=== PATIENT | male | born 1960 | race Caucasian/White ===

== ENCOUNTER 2018-08-16 23:48 | Emergency (ER) | payer OTHER ==
[~2018-08-16] VITALS: Ht 180.3 cm; Wt 122.7 kg
[2018-08-17 00:14] VITALS: BP 139/92
[2018-08-17] MEDS ORDERED: NS 500 ML IV ONE (00:15)
[2018-08-17] MEDS ORDERED: FLECAINIDE 50MG TABLET PO ONE (00:15)
[2018-08-17] MEDS ORDERED: ASPIRIN 325 MG TAB PO ONE (00:15)
[2018-08-17] MEDS ORDERED: METOPROLOL TART 25 MG TABLET PO ONE (00:15)
[2018-08-17 00:38] LABS: BASO % 0.5 % (0.0-1.0); BLOOD UREA NITROGEN 17 MG/DL (7-18); CALCIUM LEVEL 8.7 MG/DL (8.8-10.2); CARBON DIOXIDE LEVEL 26 MEQ/L (21-32); CHLORIDE LEVEL 107 MEQ/L (98-107); CPK CREATINE PHOSPHOKINASE 158 U/L (39-308); CREATININE FOR GFR 1.02 MG/DL (0.70-1.30); EOS # 0.1 10^3/uL (0.0-0.50); EOS % 1.7 % (0.0-3.0); GLOMERULAR FILTRATION RATE > 60.0 (>49); GLUCOSE, FASTING 174 MG/DL (70-100); HEMATOCRIT 46.8 % (42.0-52.0); HEMOGLOBIN 15.9 g/dl (13.5-17.5); LYMPH # 3.1 10^3/uL (1.5-4.5); LYMPH % 36.6 % (24.0-44.0); MB/CK RELATIVE INDEX 1.58 (< OR =4); MEAN CORPUSCULAR HEMOGLOBIN 31.4 pg (27.0-33.0); MEAN CORPUSCULAR VOLUME 92.5 fl (80.0-96.0); MONO # 0.8 10^3/uL (0.0-0.8); MONO % 9.1 % (0.0-5.0); NEUTROPHILS # 4.3 10^3/uL (1.8-7.7); NEUTROPHILS % 51.9 % (36.0-66.0); PLATELET COUNT, AUTOMATED 189 10^3/uL (150-450); POTASSIUM SERUM 3.7 MEQ/L (3.5-5.1); RED BLOOD COUNT 5.06 10^6/uL (4.30-6.10); SODIUM LEVEL 140 MEQ/L (136-145); TROPONIN I < 0.02 NG/ML (< 0.10); WHITE BLOOD COUNT 8.3 10^3/uL (4.0-10.0)
[2018-08-17 01:18] VITALS: BP 140/86
[2018-08-17 01:18] LABS: T UPTAKE 36 % (33-40); THYROXINE (T4) 8.2 UG/DL (4.5-12.0)
[2018-08-17] MEDS ORDERED: FLEC50HA PO (01:55)
--- NOTE | 2018-08-17 07:46 | ECGEPIP ---
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
--- NOTE | 2018-08-17 07:47 | ECGEPIP ---
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
== END 2018-08-17 02:34 | disposition home or self-care (01) ==
LOC: M ED 23:48
DX: I48.91 Unspecified atrial fibrillation (principal); Z91.19 Patient's noncompliance with other medical treatment and regimen

== ENCOUNTER 2018-08-19 16:52 | Emergency (ER) | payer OTHER ==
[~2018-08-19] VITALS: Ht 180.3 cm; Wt 127.8 kg
[~2018-08-19 16:52] MED LIST: FLEC50HA PO
[2018-08-19] MEDS ORDERED: NITROGLYCERIN 2% OINT 1 GM *U/D* PKT TOP ONE (17:45)
[2018-08-19] MEDS ORDERED: ASPIRIN 81 MG CHEW TABLET PO ONE (17:45)
[2018-08-19] MEDS ORDERED: GI COCKTAIL 50ML BTL(HYOSCYAMINE/MAALOX/LIDOCAINE VISCOUS)(1:3:1) PO ONE (17:45)
[2018-08-19 17:56] VITALS: BP 121/57
[2018-08-19 18:02] LABS: BASO % 0.5 % (0.0-1.0); EOS # 0.2 10^3/uL (0.0-0.50); EOS % 2.4 % (0.0-3.0); HEMATOCRIT 44.6 % (42.0-52.0); HEMOGLOBIN 15.1 g/dl (13.5-17.5); LYMPH # 2.6 10^3/uL (1.5-4.5); LYMPH % 31.4 % (24.0-44.0); MEAN CORPUSCULAR HEMOGLOBIN 31.7 pg (27.0-33.0); MEAN CORPUSCULAR HGB CONC 33.9 g/dl (32.0-36.5); MEAN CORPUSCULAR VOLUME 93.7 fl (80.0-96.0); MONO # 0.7 10^3/uL (0.0-0.8); MONO % 8.1 % (0.0-5.0); NEUTROPHILS # 4.7 10^3/uL (1.8-7.7); NEUTROPHILS % 57.4 % (36.0-66.0); PLATELET COUNT, AUTOMATED 192 10^3/uL (150-450); RED BLOOD COUNT 4.76 10^6/uL (4.30-6.10); WHITE BLOOD COUNT 8.3 10^3/uL (4.0-10.0)
[2018-08-19 18:07] LABS: INR 1.01; PROTHROMBIN TIME 13.4 SECONDS (12.1-14.4)
[2018-08-19 18:08] LABS: PARTIAL THROMBOPLASTIN TIME 28.5 SECONDS (25.4-37.6)
[2018-08-19 18:15] LABS: ALBUMIN 3.3 GM/DL (3.2-5.2); ALT/SGPT 36 U/L (12-78); BILIRUBIN,DIRECT 0.1 MG/DL (0.0-0.2); BILIRUBIN,TOTAL 0.4 MG/DL (0.2-1.0); BLOOD UREA NITROGEN 23 MG/DL (7-18); CALCIUM LEVEL 8.3 MG/DL (8.8-10.2); CARBON DIOXIDE LEVEL 27 MEQ/L (21-32); CHLORIDE LEVEL 108 MEQ/L (98-107); CPK CREATINE PHOSPHOKINASE 178 U/L (39-308); CREATININE FOR GFR 0.91 MG/DL (0.70-1.30); GLOMERULAR FILTRATION RATE > 60.0 (>49); GLUCOSE, FASTING 104 MG/DL (70-100); MB/CK RELATIVE INDEX 1.24 (< OR =4); NT-PRO BNP 87 PG/ML (<125); POTASSIUM SERUM 3.7 MEQ/L (3.5-5.1); SODIUM LEVEL 141 MEQ/L (136-145); TOTAL PROTEIN 6.8 GM/DL (6.4-8.2); TROPONIN I < 0.02 NG/ML (< 0.10)
[2018-08-19] MEDS ORDERED: ISOVUE-370 76% 100ML VIAL (Q9967) As Ordered ONE (18:33)
--- NOTE | 2018-08-19 19:03 | REP ---
CHEST, PORTABLE: AP portable view of the chest is performed. There is cardiomegaly. I see no acute infiltrate. Mediastinal silhouette is unremarkable. IMPRESSION: Mild cardiomegaly. No acute infiltrate. Electronically Signed by Ar Marie MD 08/20/2018 04:51 P
[2018-08-19 19:08] LABS: ERYTHROCYTE SEDIMENTATION RATE 7 mm/hr (0-20)
--- NOTE | 2018-08-19 20:10 | REPVR ---
EXAM: CT Angiography Chest With Contrast EXAM DATE/TIME: 08/19/2018 7:24 PM CLINICAL HISTORY: 58 years old, male; Chest pain; Additional info: R/O pe TECHNIQUE: Imaging protocol: Axial computed tomographic angiography images of the chest with intravenous contrast using CT angiography protocol. Coronal and sagittal reformatted images were created and reviewed. 3D rendering: MIP reconstructed images were created and reviewed. Radiation optimization: All CT scans at this facility use at least one of these dose optimization techniques: automated exposure control; mA and/or kV adjustment per patient size (includes targeted exams where dose is matched to clinical indication); or iterative reconstruction. Contrast material: ISO 370; Contrast volume: 75 ml; Contrast route: IV; COMPARISON: CR PORTABLE CHEST X-RAY 08/19/2018 6:01 PM FINDINGS: Pulmonary arteries: The main pulmonary artery measures 28 mm. No pulmonary embolism is identified. Aorta: The ascending thoracic aorta measures 36 mm. Lungs: Minimal dependent atelectasis in the lower lobes. Pleural space: Normal. No pneumothorax. No pleural effusion. Heart: Coronary artery calcifications are present. Gallbladder and bile ducts: The gallbladder is contracted with no stones. Lymph nodes: Unremarkable. No enlarged lymph nodes. Bones/joints: Unremarkable. No acute fracture. Soft tissues: Unremarkable. IMPRESSION: Negative CTA chest. No pulmonary embolism is identified. Electronically signed by: Alfredo Stewart On 08/19/2018 20:10:26 PM
[2018-08-19 21:46] LABS: CPK CREATINE PHOSPHOKINASE 186 U/L (39-308); MB/CK RELATIVE INDEX 1.08 (< OR =4); TROPONIN I < 0.02 NG/ML (< 0.10)
[2018-08-19] MEDS ORDERED: ASPI81TA85 PO (21:57)
[2018-08-19] MEDS ORDERED: FLECAINIDE 50MG TABLET PO ONE (22:45)
[2018-08-19 22:52] VITALS: BP 122/77
--- NOTE | 2018-08-20 05:53 | ECGEPIP ---
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
--- NOTE | 2018-08-20 05:56 | ECGEPIP ---
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
== END 2018-08-19 23:03 | disposition home or self-care (01) ==
LOC: M ED 16:52
DX: R07.89 Other chest pain (principal); I49.3 Ventricular premature depolarization; R06.02 Shortness of breath; I48.91 Unspecified atrial fibrillation; Z86.79 Personal history of other diseases of the circulatory system; Z87.891 Personal history of nicotine dependence; Z82.49 Family history of ischemic heart disease and other diseases of the circulatory system
CPT/HCPCS: 36415; 71045; 71275; 80048; 80076; 82550; 82553; 83880; 84484; 85025; 85610; 85652; 85730; 86140; 93005; 93041; 94760; 99285; Q9967

== ENCOUNTER 2018-09-14 23:47 | Emergency (ER) | payer OTHER ==
[~2018-09-14] VITALS: Ht 177.8 cm; Wt 127.3 kg
[~2018-09-14 23:47] MED LIST changes: +ASPI81TA85 PO
[2018-09-15] MEDS ORDERED: METOPROLOL 5 MG/5 ML VIAL As Ordered ONE (00:11)
[2018-09-15 00:24] VITALS: BP 144/66
[2018-09-15 00:25] LABS: BASO % 0.5 % (0.0-1.0); EOS # 0.2 10^3/uL (0.0-0.50); EOS % 2.8 % (0.0-3.0); HEMATOCRIT 46.5 % (42.0-52.0); HEMOGLOBIN 15.9 g/dl (13.5-17.5); LYMPH # 2.6 10^3/uL (1.5-4.5); LYMPH % 30.7 % (24.0-44.0); MEAN CORPUSCULAR HEMOGLOBIN 32.1 pg (27.0-33.0); MEAN CORPUSCULAR HGB CONC 34.2 g/dl (32.0-36.5); MEAN CORPUSCULAR VOLUME 93.8 fl (80.0-96.0); MONO % 11.9 % (0.0-5.0); NEUTROPHILS # 4.6 10^3/uL (1.8-7.7); NEUTROPHILS % 53.4 % (36.0-66.0); PLATELET COUNT, AUTOMATED 185 10^3/uL (150-450); RED BLOOD COUNT 4.96 10^6/uL (4.30-6.10); WHITE BLOOD COUNT 8.6 10^3/uL (4.0-10.0)
[2018-09-15] MEDS ORDERED: METOPROLOL TART 25 MG TABLET PO ONE (00:30)
[2018-09-15 00:56] LABS: BLOOD UREA NITROGEN 24 MG/DL (7-18); CALCIUM LEVEL 8.7 MG/DL (8.8-10.2); CARBON DIOXIDE LEVEL 25 MEQ/L (21-32); CHLORIDE LEVEL 106 MEQ/L (98-107); CPK CREATINE PHOSPHOKINASE 220 U/L (39-308); CREATININE FOR GFR 0.82 MG/DL (0.70-1.30); GLOMERULAR FILTRATION RATE > 60.0 (>49); GLUCOSE, FASTING 129 MG/DL (70-100); MAGNESIUM LEVEL 2.1 MG/DL (1.8-2.4); MB/CK RELATIVE INDEX 1.05 (< OR =4); POTASSIUM SERUM 4.6 MEQ/L (3.5-5.1); SODIUM LEVEL 138 MEQ/L (136-145); TROPONIN I < 0.02 NG/ML (< 0.10)
[2018-09-15 03:45] VITALS: BP 107/65
[2018-09-15] MEDS ORDERED: METO1TAB87 PO (03:56)
--- NOTE | 2018-09-15 08:57 | REP ---
Clinical: Chest pain . Comparison: 08/02/2018 . Findings: The mediastinum and cardiac silhouette are stable and within normal limits for portable technique. The lung moarles are clear without acute consolidation, effusion, or pneumothorax. Skeletal structures are intact. Impression: No acute cardiopulmonary process appreciated. Electronically Signed by Joseph Rodriguez MD 09/15/2018 08:49 A
--- NOTE | 2018-09-15 20:56 | ECGEPIP ---
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
--- NOTE | 2018-09-15 20:57 | ECGEPIP ---
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
== END 2018-09-15 04:15 | disposition home or self-care (01) ==
LOC: M ED 23:47
DX: I48.91 Unspecified atrial fibrillation (principal); I48.92 Unspecified atrial flutter

== ENCOUNTER 2018-10-17 15:30 | Emergency (ER) | payer OTHER ==
[~2018-10-17] VITALS: Ht 177.8 cm; Wt 125.9 kg
[~2018-10-17 15:30] MED LIST changes: +METO1TAB87 PO
[2018-10-17] MEDS ORDERED: METOPROLOL 5 MG/5 ML VIAL IV SCH (15:45)
[2018-10-17] MEDS ORDERED: METOPROLOL TART 50 MG TAB PO ONE (16:00)
[2018-10-17 16:50] LABS: CK-MB VALUE MASS 2.5 NG/ML (<3.6); CPK CREATINE PHOSPHOKINASE 169 U/L (39-308); MB/CK RELATIVE INDEX 1.48 (< OR =4); TROPONIN I < 0.02 NG/ML (< 0.10)
[2018-10-17] MEDS ORDERED: METO25TA4 PO (17:29)
[2018-10-17 17:51] VITALS: BP 132/80
--- NOTE | 2018-10-18 09:38 | ECGEPIP ---
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
--- NOTE | 2018-10-18 11:18 | ECGEPIP ---
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
== END 2018-10-17 18:12 | disposition home or self-care (01) ==
LOC: EDBD 15:30 → M ED 15:30
DX: I48.0 Paroxysmal atrial fibrillation (principal); R06.02 Shortness of breath; E66.9 Obesity, unspecified; Z79.82 Long term (current) use of aspirin